=== PATIENT | female | born 1980 | race Caucasian/White ===

== ENCOUNTER 2024-01-03 06:45 | Emergency (ER) | payer BC, MEDICAID, SELFPAY ==
[2024-01-03 06:53] VITALS: BP 99/70; PULSE 84; RESP 18; TEMP 36.8; O2SAT 99; BMI 21.2
--- NOTE | 2024-01-03 07:06 | ED.NAVMDI ---
HPI - Nausea/Vomiting/Diarrhea General Date Seen: 01/03/24 <Yariel Gabriel - Last Filed: 01/03/24 07:55> Chief complaint: Nausea/Vomiting <Yariel Gabriel DO - Last Filed: 01/03/24 07:55> Stated complaint: vomiting all night <Yariel Gabriel DO - Last Filed: 01/03/24 07:55> Time Seen by Provider: 01/03/24 06:59 <Yariel Gabriel DO - Last Filed: 01/03/24 07:55> Source: patient <Yariel Gabriel - Last Filed: 01/03/24 07:55> Mode of arrival: ambulatory <Yariel Gabriel - Last Filed: 01/03/24 07:55> Limitations: no limitations <Yarielhelena Willoughbykim DO - Last Filed: 01/03/24 07:55> History of Present Illness HPI Narrative: Patient is a 43-year-old female with no pertinent medical problems presenting to the emergency department for nausea and vomiting. She states the nausea has been going on since last night and she has vomited multiple times. She has be other able to sleep overnight due to the symptoms. She stays she has been feeling under the weather for a little while now but the vomiting did not start until last night. Did have diarrhea last week it she states she has had family members who were sick last week but no sick contacts within the past few days. Has not had any fevers or chills. Last ate around 17:00. Has tried Zofran at home without any improvement the nausea. States she is feeling lightheaded and weak. Previous surgeries include a cholecystectomy and a tummy tuck. No complications from the surgeries. Has not had bowel movement since the symptoms started. Denies any abdominal pain. Does states she started has chest pain after the vomiting began. Denies symptoms like this before. No other concerns noted <Yariel Gabriel DO - Last Filed: 01/03/24 07:55> Related Data Home medications: Previous Rx's ?Medication ?Instructions ?Recorded ondansetron 4 mg disintegrating 4 mg PO Q6H #20 tabs 01/03/24 tablet <Yariel Gabriel DO - Last Filed: 01/03/24 07:55> Allergies/Adverse reactions: Allergies Allergy/AdvReac Type Severity Reaction Status Date / Time No Known Drug Allergies Allergy Verified 01/03/24 06:56 <Yariel Gabriel DO - Last Filed: 01/03/24 07:55> Review of Systems Status of ROS: Reports: 10 or more systems reviewed and unremarkable except as noted in History and below <Yariel Gabriel DO - Last Filed: 01/03/24 07:55> PFSH PFS Medical History: Medical History Asthma exacerbation ?J45.901 - Unspecified asthma with (acute) exacerbation (ICD-10) Cough ?R05.9 - Cough, unspecified (ICD-10) <Yariel Gabriel DO - Last Filed: 01/03/24 07:55> Social History: Social History Smoking Status: Never smoker Second hand tobacco smoke exposure: No How often do you have a drink containing alcohol: never AUDIT-C Alcohol total score: 0 Non-prescribed substance use: denies use <Yariel Gabriel DO - Last Filed: 01/03/24 07:55> Exam Narrative: Exam Narrative: Const: Well-nourished, Well-developed, in moderate distress Eyes: PERRL, no conjunctival injection, and symmetrical lids HENT: Atraumatic external nose and ears. Moist mucous membranes. Neck: Symmetric, trachea midline, No thyromegaly. CVS: RRR, No murmurs or gallops. Peripheral pulses 2+ and equal in all extremities RESP: Unlabored respiratory effort. Clear to auscultation bilaterally. GI: Nontender/Nondistended, No rebound or guarding. MSK:Extremities w/o deformity, Normal Active ROM Skin: Warm, Dry. No rashes or lesions. Neuro: Normal Muscle tone, No focal neurological deficits. Psych: Awake, Alert, & Oriented x3. Appropriate mood and affect. <Yariel Gabriel DO - Last Filed: 01/03/24 07:55> Const: Vital Signs, click to edit/add: Vital Signs - 24 hr 01/03/24 06:53 01/03/24 08:52 Temperature 98.2 F Pulse Rate [Right Pulse Oximeter] 84 105 H Respiratory Rate 18 18 Blood Pressure [Ri ght Upper Arm] 99/70 101/61 Pulse Oximetry 99 100 Oxygen Delivery Me thod Room Air Room Air <Yariel Gabriel DO - Last Filed: 01/03/24 07:55> Vital Signs, click to edit/add: Vital Signs - 24 hr 01/03/24 06:53 01/03/24 08:52 Temperature 98.2 F Pulse Rate [Right Pulse Oximeter] 84 105 H Respiratory Rate 18 18 Blood Pressure [Ri ght Upper Arm] 99/70 101/61 Pulse Oximetry 99 100 Oxygen Delivery Me thod Room Air Room Air <Roberto Carlos Diallo MD - Last Filed: 01/03/24 09:25> Course Reevaluation(s) Reevaluation #1: Labs and CT reviewed. UA shows contamination. No significant findings other than gastroenteritis she will be treated with Zofran rest fluids per previous physician's recommendations. <Roberto Carlos Diallo MD - Last Filed: 01/03/24 09:25> Vital Signs Vital signs: Initial Vital Signs Temperature 98.2 F 01/03/24 06:53 Temperature Source Temporal Artery Scan 01/03/24 06:53 Pulse Rate 84 01/03/24 06:53 Respiratory Rate 18 01/03/24 06:53 Blood Pressure 99/70 01/03/24 06:53 Blood Pressure Mean 79 01/03/24 06:53 Blood Pressure Position Supine 01/03/24 06:53 Pulse Oximetry 99 01/03/24 06:53 Oxygen Delivery Method Room Air 01/03/24 06:53 Vital Signs Temperature 98.2 F 01/03/24 06:53 Pulse Rate 84 01/03/24 06:53 Respiratory Rate 18 01/03/24 06:53 Blood Pressure 99/70 01/03/24 06:53 Pulse Oximetry 99 01/03/24 06:53 Oxygen Delivery Method Room Air 01/03/24 06:53 Temperature 98.2 F 01/03/24 06:53 Pulse Rate 105 H 01/03/24 08:52 Respiratory Rate 18 01/03/24 08:52 Blood Pressure 101/61 01/03/24 08:52 Pulse Oximetry 100 01/03/24 08:52 Oxygen Delivery Method Room Air 01/03/24 08:52 <Yariel Gabriel DO - Last Filed: 01/03/24 07:55> Initial Vital Signs Temperature 98.2 F 01/03/24 06:53 Temperature Source Temporal Artery Scan 01/03/24 06:53 Pulse Rate 84 01/03/24 06:53 Respiratory Rate 18 01/03/24 06:53 Blood Pressure 99/70 01/03/24 06:53 Blood Pressure Mean 79 01/03/24 06:53 Blood Pressure Position Supine 01/03/24 06:53 Pulse Oximetry 99 01/03/24 06:53 Oxygen Delivery Method Room Air 01/03/24 06:53 Vital Signs Temperature 98.2 F 01/03/24 06:53 Pulse Rate 84 01/03/24 06:53 Respiratory Rate 18 01/03/24 06:53 Blood Pressure 99/70 01/03/24 06:53 Pulse Oximetry 99 01/03/24 06:53 Oxygen Delivery Method Room Air 01/03/24 06:53 Temperature 98.2 F 01/03/24 06:53 Pulse Rate 105 H 01/03/24 08:52 Respiratory Rate 18 01/03/24 08:52 Blood Pressure 101/61 01/03/24 08:52 Pulse Oximetry 100 01/03/24 08:52 Oxygen Delivery Method Room Air 01/03/24 08:52 <Roberto Carlos Diallo MD - Last Filed: 01/03/24 09:25> Medications Administered Medications: Discontinued Medications Generic Name Dose Route Start Last Admin Trade Name Freq PRN Reason Stop Dose Admin Sodium Chloride 500 mls @ 1,000 mls/hr 01/03/24 07:04 01/03/24 07:45 0.9 % Sodium Chloride 500 Ml IV 01/03/24 07:33 Infused .Q30M ONE Infusion Ondansetron HCl 4 mg 01/03/24 07:04 01/03/24 07:19 Ondansetron 2 Mg/Ml Inj IVP 01/03/24 07:05 4 mg ONCE ONE Administration <Yariel Gabriel DO - Last Filed: 01/03/24 07:55> Discontinued Medications Generic Name Dose Route Start Last Admin Trade Name Freq PRN Reason Stop Dose Admin Sodium Chloride 500 mls @ 1,000 mls/hr 01/03/24 07:04 01/03/24 07:45 0.9 % Sodium Chloride 500 Ml IV 01/03/24 07:33 Infused .Q30M ONE Infusion Ondansetron HCl 4 mg 01/03/24 07:04 01/03/24 07:19 Ondansetron 2 Mg/Ml Inj IVP 01/03/24 07:05 4 mg ONCE ONE Administration <Roberto Carlos Diallo MD - Last Filed: 01/03/24 09:25> MDM - Nausea/Vomiting/Diarrhea MDM Narrative Medical decision making narrative: Patient is a 43-year-old female presenting to emergency department for nausea and vomiting. She is not having any associated abdominal pain at this time. Symptoms could be from a gastroenteritis. Will also check for pancreatitis and any liver disease with a lipase and LFTs. SBO seems very unlikely as she was having bowel movements yesterday and she is having no associated pain. Will hold off on doing a CT scan at this time pending lab work. She did have some chest pain as she thinks is from the vomiting. Her pain is relatively minimal but will do a chest x-ray to look for any signs of pneumomediastinum. Will also do an EKG and troponin. Patient was given 500 mL of normal saline and IV Zofran. Had some mild improvement in her symptoms with the Zofran. CBC shows no concerning abnormalities. I was able to do a more thorough abdominal exam now that she is able to lay in bed comfortably and she does have some mild diffuse tenderness. Concerned she is still nauseated we will go ahead and do a CT scan to check for any other intra-abdominal abnormalities. Patient signed out to my colleague, Dr. Diallo, expected disposition at this time is discharge. <Yariel Gabriel DO - Last Filed: 01/03/24 07:55> Lab Data Labs: Lab Results 01/03/24 01/03/24 01/03/24 Range/Units 06:56 07:08 07:23 WBC 9.95 (4.50-11.00) K/uL RBC 4.86 (4.00-5.20) m/uL Hgb 14.7 (12.0-16.0) gm/dL Hct 43.3 (33.0-51.0) % MCV 89 (80-100) fL MCH 30 (26-34) pg MCHC 34 (32-36) gm/dL RDW Coeff of Kai 11.8 (11.5-15.5) % Plt Count 176 (140-440) K/uL Neut % (Auto) 88.3 H (42.0-72.0) % Lymph % (Auto) 6.7 L (20-44) % [place] % (Auto) 3.5 (0.0-11.0) % Eos % (Auto) 1.2 (0.0-7.0) % Baso % (Auto) 0.2 (0.0-3.0) % Neut # (Auto) 8.80 H (1.7-7.0) K/uL Lymph # (Auto) 0.70 L (0.90-2.90) K/uL [place] # (Auto) 0.30 (0.00-0.90) K/UL Eos # (Auto) 0.12 (0.00-0.50) K/uL Baso # (Auto) 0.02 (0.00-0.30) K/uL Abs Immat Gran (auto) 0.01 (0.00-0.30) K/uL Imm/Tot Granulo (auto) 0.1 % Sodium 136 (135-149) mmol/L Potassium 4.1 (3.6-5.1) mmol/L Chloride 104 (96-114) mmol/L Carbon Dioxide 20 (20-32) mmol/L Anion Gap 12 (7-15) mEq/L BUN 23 (5-24) mg/dL Creatinine 0.7 (0.5-1.5) mg/dL Estimated Creat Clear 83.65 Estimated GFR 111 ml/min Glucose 106 (60-115) mg/dL Calcium 9.6 (8.4-10.6) mg/dL Magnesium 2.2 (1.5-2.6) mg/dL Total Bilirubin 1.1 (0.1-1.5) mg/dL AST 29 (12-35) U/L ALT 21 (4-35) U/L Alkaline Phosphatase 59 (40-150) U/L Total Protein 7.0 (6.0-8.3) g/dL Albumin 4.6 (3.3-5.0) g/dL Lipase 55 (23-300) U/L Urine Color Dark yellow (Yellow) Urine Appearance Cloudy A (Clear) Urine pH 8.5 (5.0-8.5) Ur Specific [place] 1.015 (1.000-1.030) Urine Protein 2+ A (Negative) Urine Glucose (UA) Negative (Negative) Urine Ketones 4+ A (Negative) Urine Blood Negative (Negative) Urine Nitrite Negative (Negative) Urine Bilirubin 1+ A (Negative) Urine Urobilinogen 0.2 (0.2-1.0) Ur Leukocyte Esterase 1+ A (Negative) Urine RBC 0-2 (0-2) Urine WBC 25-50 A (0-5) Ur Squamous Epith Cells Moderate A (None-Few) Urine Bacteria Moderate A (None) Urine HCG, Qual Negative (Negative) SARS-CoV-2 (PCR) Negative SARS-CoV-2 (Negative) Influenza Type A (PCR) Negative PCR FLU A (Negative) Influenza Type B (PCR) Negative PCR FLU B (Negative) POC Troponin I 0.00 L (0.01-0.04) ng/ml <Yariel Gabriel, - Last Filed: 01/03/24 07:55> Lab Results 01/03/24 01/03/24 01/03/24 Range/Units 06:56 07:08 07:23 WBC 9.95 (4.50-11.00) K/uL RBC 4.86 (4.00-5.20) m/uL Hgb 14.7 (12.0-16.0) gm/dL Hct 43.3 (33.0-51.0) % MCV 89 (80-100) fL MCH 30 (26-34) pg MCHC 34 (32-36) gm/dL RDW Coeff of Kai 11.8 (11.5-15.5) % Plt Count 176 (140-440) K/uL Neut % (Auto) 88.3 H (42.0-72.0) % Lymph % (Auto) 6.7 L (20-44) % [place] % (Auto) 3.5 (0.0-11.0) % Eos % (Auto) 1.2 (0.0-7.0) % Baso % (Auto) 0.2 (0.0-3.0) % Neut # (Auto) 8.80 H (1.7-7.0) K/uL Lymph # (Auto) 0.70 L (0.90-2.90) K/uL [place] # (Auto) 0.30 (0.00-0.90) K/UL Eos # (Auto) 0.12 (0.00-0.50) K/uL Baso # (Auto) 0.02 (0.00-0.30) K/uL Abs Immat Gran (auto) 0.01 (0.00-0.30) K/uL Imm/Tot Granulo (auto) 0.1 % Sodium 136 (135-149) mmol/L Potassium 4.1 (3.6-5.1) mmol/L Chloride 104 (96-114) mmol/L Carbon Dioxide 20 (20-32) mmol/L Anion Gap 12 (7-15) mEq/L BUN 23 (5-24) mg/dL Creatinine 0.7 (0.5-1.5) mg/dL Estimated Creat Clear 83.65 Estimated GFR 111 ml/min Glucose 106 (60-115) mg/dL Calcium 9.6 (8.4-10.6) mg/dL Magnesium 2.2 (1.5-2.6) mg/dL Total Bilirubin 1.1 (0.1-1.5) mg/dL AST 29 (12-35) U/L ALT 21 (4-35) U/L Alkaline Phosphatase 59 (40-150) U/L Total Protein 7.0 (6.0-8.3) g/dL Albumin 4.6 (3.3-5.0) g/dL Lipase 55 (23-300) U/L Urine Color Dark yellow (Yellow) Urine Appearance Cloudy A (Clear) Urine pH 8.5 (5.0-8.5) Ur Specific [place] 1.015 (1.000-1.030) Urine Protein 2+ A (Negative) Urine Glucose (UA) Negative (Negative) Urine Ketones 4+ A (Negative) Urine Blood Negative (Negative) Urine Nitrite Negative (Negative) Urine Bilirubin 1+ A (Negative) Urine Urobilinogen 0.2 (0.2-1.0) Ur Leukocyte Esterase 1+ A (Negative) Urine RBC 0-2 (0-2) Urine WBC 25-50 A (0-5) Ur Squamous Epith Cells Moderate A (None-Few) Urine Bacteria Moderate A (None) Urine HCG, Qual Negative (Negative) SARS-CoV-2 (PCR) Negative SARS-CoV-2 (Negative) Influenza Type A (PCR) Negative PCR FLU A (Negative) Influenza Type B (PCR) Negative PCR FLU B (Negative) POC Troponin I 0.00 L (0.01-0.04) ng/ml <Roberto Carlos Diallo MD - Last Filed: 01/03/24 09:25> ECG Data Attestation: I personally reviewed and interpreted this ECG as follows: <Yariel Gabriel DO - Last Filed: 01/03/24 07:55> Prior ECG tracings: not available for review <Yariel Gabriel DO - Last Filed: 01/03/24 07:55> Interpretation: Normal sinus rhythm with rate of 92 beats per minute, normal intervals, normal axis, no ST or T-wave abnormalities <Yariel Gabriel DO - Last Filed: 01/03/24 07:55> Discharge Plan Discharge Clinical Impression: Nausea & vomiting Qualifiers: Vomiting type: unspecified Qualified Code(s): R11.2 - Nausea with vomiting, unspecified <Yariel Gabriel DO - Last Filed: 01/03/24 07:55> Patient Disposition: Home, Self-Care <Yariel Gabriel DO - Last Filed: 01/03/24 07:55> Condition: Improved <Yariel Gabriel DO - Last Filed: 01/03/24 07:55> Instructions: Acute Nausea and Vomiting (DC) <Yariel Gabriel DO - Last Filed: 01/03/24 07:55> Additional Instructions: Symptoms seem most likely related to gastroenteritis. Take Zofran as needed for nausea. Return to emergency department for new or worsening symptoms. Symptoms should resolve over the next few days <Yariel Gabriel DO - Last Filed: 01/03/24 07:55> Activity Level: No Restrictions and Other <Yariel Gabriel DO - Last Filed: 01/03/24 07:55> No Restrictions and Other <Roberto Carlos Diallo MD - Last Filed: 01/03/24 09:25> Discharge Diet: Regular <Yariel Gabriel DO - Last Filed: 01/03/24 07:55> Regular <Roberto Carlos Diallo MD - Last Filed: 01/03/24 09:25> Prescriptions: New ondansetron 4 mg tablet,disintegrating 4 mg PO Q6H Qty: 20 0RF <Yariel Gabriel DO - Last Filed: 01/03/24 07:55> Follow Up/Referrals: Angelica Moss MD [Staff Physician] - <Yariel Gabriel DO - Last Filed: 01/03/24 07:55> Stand Alone [facility]: [facility] Info [facility] <Yariel Gabriel DO - Last Filed: 01/03/24 07:55>
--- NOTE | 2024-01-03 07:08 | CRLHL7_ITS ---
For Patients: As a result of the Century Cures Act, medical imaging exams and procedure reports are released immediately into your electronic medical record. You may view this report before your referring provider. If you have questions, please contact your health care provider. INDICATION: Chest pain after emesis TECHNIQUE: Two view chest. FINDINGS: The lungs are clear. The heart, mediastinum and pulmonary vessels are of normal size. There is no evidence of pleural disease. IMPRESSION: Negative chest. Dictated by Guerda Lew MD @ 01/03/2024 7:46:12 AM (Electronically Signed)
[2024-01-03] MEDS: ONDANSETRON 2 MG/ML inj 4 MG IVP (07:19)
[2024-01-03] MEDS: 0.9 % SODIUM CHLORIDE 500 ML 500 ML 1000 ML IV (07:24)
[2024-01-03 07:34] LABS: Appearance Urine Cloudy (Clear); Bilirubin Urine 1+ (Negative); Blood Urine Negative (Negative); Color Urine Dark yellow (Yellow); Glucose Urine Negative (Negative); Ketones Urine 4+ (Negative); Leukocyte Esterase Urine 1+ (Negative); Nitrite Urine Negative (Negative); Protein Urine 2+ (Negative); Specific Gravity Urine 1.015 (1.000-1.030); Urobilinogen Urine 0.2 (0.2-1.0); pH Urine 8.5 (5.0-8.5)
[2024-01-03 07:36] LABS: Basophils Absolute Auto 0.02 K/uL (0.00-0.30); Basophils Percent Auto 0.2 % (0.0-3.0); Eosinophils Absolute Auto 0.12 K/uL (0.00-0.50); Eosinophils Percent Auto 1.2 % (0.0-7.0); Hematocrit 43.3 % (33.0-51.0); Hemoglobin* 14.7 gm/dL (12.0-16.0); Immature Granulocytes Abs Auto 0.01 K/uL (0.00-0.30); Immature Granulocytes Pct Auto 0.1 %; Lymphocytes Percent Auto 6.7 % (20-44); Mean Corpuscular HGB Conc 34 gm/dL (32-36); Mean Corpuscular Hemoglobin 30 pg (26-34); Mean Corpuscular Volume 89 fL (80-100); Monocytes Percent Auto 3.5 % (0.0-11.0); Neutrophils Percent Auto 88.3 % (42.0-72.0); Platelet Count* 176 K/uL (140-440); RDW Coefficient of Variation % 11.8 % (11.5-15.5); Red Blood Count 4.86 m/uL (4.00-5.20); White Blood Count* 9.95 K/uL (4.50-11.00)
[2024-01-03 07:38] LABS: Ur HCG Qualitative* Negative (Negative)
[2024-01-03 07:40] LABS: Slide Review Reflex No
--- NOTE | 2024-01-03 07:45 | CRLHL7_ITS ---
For Patients: As a result of the Century Cures Act, medical imaging exams and procedure reports are released immediately into your electronic medical record. You may view this report before your referring provider. If you have questions, please contact your health care provider. INDICATION: Diffuse abdominal pain with vomiting. TECHNIQUE: CT abdomen and pelvis acquired with 57 cc Isovue 370 IV contrast. COMPARISON: None. FINDINGS: Lower chest: Unremarkable. Liver: Unremarkable. Normal in size and attenuation. No suspicious masses. Gallbladder and bile ducts: Cholecystectomy. Pancreas: Unremarkable. No mass or inflammation. Spleen: Unremarkable. Normal in size. No masses. Adrenal glands: Unremarkable. No nodules. Kidneys: Unremarkable. No suspicious masses, stones, or hydronephrosis. GI tract: Unremarkable. Normal in caliber. No sign of mass or inflammation. Normal appendix. Vasculature: Abdominal aorta is normal in caliber. Mesenteric arteries are patent. Lymph nodes: No lymphadenopathy. Peritoneum/Abdominal Wall: Unremarkable. No sign of mass or infiltration. No free air or significant free fluid. Pelvis: Unremarkable. Bones: Unremarkable for age. IMPRESSION: Unremarkable CT of the abdomen and pelvis. No findings to explain abdominal pain or vomiting. Please note that all CT scans at this facility use dose modulation, iterative reconstruction, and/or weight-based dosing when appropriate to reduce radiation dose to as low as reasonably achievable. Dictated by Jay Sweeney MD @ 01/03/2024 8:47:20 AM (Electronically Signed)
[2024-01-03 08:08] LABS: Bacteria Urine Moderate; RBC Urine 0-2 (0-2); Squamous Epithelial Cell Urine Moderate (None-Few); WBC Urine 25-50 (0-5)
[2024-01-03 08:15] LABS: PCR FLU A Negative PCR FLU A (Negative); PCR FLU B Negative PCR FLU B (Negative); SARS PCR* Negative SARS-CoV-2 (Negative)
[2024-01-03 08:52] VITALS: BP 101/61; PULSE 105; RESP 18; O2SAT 100
[2024-01-03 09:14] LABS: Albumin* 4.6 g/dL (3.3-5.0)
[2024-01-03 09:15] LABS: Chloride* 104 mmol/L (96-114); Potassium* 4.1 mmol/L (3.6-5.1); Sodium* 136 mmol/L (135-149)
[2024-01-03 09:16] LABS: Blood Urea Nitrogen* 23 mg/dL (5-24); Creatinine* 0.7 mg/dL (0.5-1.5); Est. Creatinine Clearance* 83.65; Estimated Glomerular Filt Rate 111 ml/min
[2024-01-03 09:17] LABS: Alanine Aminotransferase* 21 U/L (4-35); Magnesium* 2.2 mg/dL (1.5-2.6)
[2024-01-03 09:18] LABS: Alkaline Phosphatase* 59 U/L (40-150)
[2024-01-03 09:20] LABS: Anion Gap 12 mEq/L (7-15); Aspartate Amino Transferase* 29 U/L (12-35); Bilirubin Total* 1.1 mg/dL (0.1-1.5); Calcium* 9.6 mg/dL (8.4-10.6); Carbon Dioxide* 20 mmol/L (20-32); Glucose* 106 mg/dL (60-115); Lipase* 55 U/L (23-300)
== END 2024-01-03 09:39 | disposition home or self-care (01) ==
PROVIDERS: Emergency Provider Student in an Organized Health Care Education/Training Program; PCP Family Medicine
DX: R11.2 Nausea with vomiting, unspecified (principal)
CPT/HCPCS: 36415; 71046; 74177; 80053; 81001; 81025; 83690; 83735; 84484; 85025; 87086; 87631; 93005; 99284; 99285; J2405; J7030; Q9967